=== PATIENT | female | born 1995 | race Caucasian/White ===

== ENCOUNTER 2020-01-19 20:22 | Inpatient (IN) | payer OTHER ==
[~2020-01-19] VITALS: Ht 149.9 cm; Wt 53.8 kg
[2020-01-19] MEDS ORDERED: IBU800 M1 PO (21:36)
[2020-01-19] MEDS ORDERED: SEPTRA DS 8001 TAB PO (21:36)
[2020-01-19 21:37] LABS: EOS % 0.2 % (0-4.0); GRAN # 3.2 (1.4-6.5); GRAN % 79.9 % (42.2-75.2); HEMATOCRIT 40.3 % (37.0-47.0); HEMOGLOBIN 13.2 g/dl (12.5-16.0); LYMPH # 0.5 (1.2-3.4); LYMPH % 12.9 % (20.0-51.0); MEAN CELL VOLUME 92 fl (80.0-100.0); MEAN CORPUSCULAR HEMOGLOBIN 30 pg (27.0-31.0); MEAN CORPUSCULAR HGB CONC 33 g/dl (33.0-37.0); MEAN PLATELET VOLUME 10.4 fl (7.4-10.4); MONO # 0.2 (0.1-0.6); MONO % 5.5 % (1.7-9.3); PLATELET COUNT 253 K/mm3 (130-400); RED BLOOD COUNT 4.38 M/mm3 (4.10-5.30); REDCELL DISTRIBUTION WIDTH-CV 13.3 % (11.5-14.5)
[2020-01-19] MEDS ORDERED: ZYRTEC 10MG10 MG PO (21:37)
[2020-01-19] MEDS ORDERED: DULCOLAX STOOL100 MG PO (21:37)
[2020-01-19] MEDS ORDERED: SINGULAIR 110 MG/TAB PO (21:37)
[2020-01-19] MEDS ORDERED: MIRALAX PA17 GM/Dose PO (21:38)
[2020-01-19 21:53] LABS: ALBUMIN 4.5 gm/dL (3.5-5.0); BILIRUBIN,TOTAL 0.6 mg/dL (0.0-1.0); C-REACTIVE PROTEIN 5.3 mg/dL (0.0-0.9); CALCIUM 9.5 mg/dL (8.4-10.2); CREATININE, serum 0.68 (0.52-1.25); POTASSIUM 3.9 mmol/L (3.4-5.0); TOTAL PROTEIN 7.9 gm/dL (6.4-8.2)
[2020-01-19 22:30] LABS: COLLECTION METHOD CLEAN CATCH
[2020-01-19 22:38] LABS: MUCOUS Present /lpf; PH 7 (5-8); URINE APPEARANCE Clear; URINE BACTERIA Rare /hpf; URINE BILIRUBIN Negative (NEGATIVE); URINE BLOOD Negative (NEGATIVE); URINE COLOR Yellow; URINE GLUCOSE Negative (NEGATIVE); URINE KETONE Negative (NEGATIVE); URINE LEUKOCYTE ESTERASE 1+ (NEGATIVE); URINE NITRATE Negative (NEGATIVE); URINE PROTEIN(semi-quant) Negative (NEGATIVE); URINE RBC 0-2 /hpf; URINE UROBILINOGEN >=4.0 mg/dL (NEGATIVE)
[2020-01-19 23:53] VITALS: BP 102/68; PULSE 89; TEMP 98.8
[2020-01-20] VITALS (7 sets, daily range): BP systolic 83–108; BP diastolic 44–63; PULSE 61–79; TEMP 98–98.8
--- NOTE | 2020-01-20 05:01 | NUR ---
Patient to Room 342 at 2345 via cart. Mother at bedside. States pain is under control, but states she is nauseous. Order for phenergan obtained and given. Patient states this makes her arms and legs restless after administration. IV antibiotic received and given. No adverse reactions noted at this time. Patient ambulated with SBA from staff to the bathroom and voided. IVF to right AC. 3 dressings to abdomen present. CDI. BP at 0500 noted to be 83/44 with pulse of 65. Patient was asleep prior to vitals being taken. Denies symptoms. Dr. Solorzano updated and ordered to recheck in 30 minutes to an hour and call her back if BP continues to be low. Remains afebrile since arrival to the unit. Denies pain. Will continue to monitor patient.
--- NOTE | 2020-01-20 06:16 | NUR ---
Recheck on BP was 88/50. Dr. Solorzano updated. She stated to continue to monitor patient and call if she becomes symptomatic. States Dr. Calles comes on at 0700 and she will update her on situation. Will report off to day shift nurse.
[2020-01-20 07:08] LABS: EOS # 0.1 (0.0-0.7); EOS % 2.9 % (0-4.0); LYMPH # 0.7 (1.2-3.4); LYMPH % 22.7 % (20.0-51.0); MEAN CELL VOLUME 94 fl (80.0-100.0); MEAN CORPUSCULAR HGB CONC 32 g/dl (33.0-37.0); MEAN PLATELET VOLUME 10.8 fl (7.4-10.4); MONO # 0.2 (0.1-0.6); MONO % 7.1 % (1.7-9.3); PLATELET COUNT 191 K/mm3 (130-400); REDCELL DISTRIBUTION WIDTH-CV 13.4 % (11.5-14.5)
[2020-01-20 07:27] LABS: ALBUMIN 3.1 gm/dL (3.5-5.0); BILIRUBIN,TOTAL 0.3 mg/dL (0.0-1.0); C-REACTIVE PROTEIN 4.6 mg/dL (0.0-0.9); CALCIUM 8.1 mg/dL (8.4-10.2); CREATININE, serum 0.57 (0.52-1.25); POTASSIUM 3.2 mmol/L (3.4-5.0); TOTAL PROTEIN 5.8 gm/dL (6.4-8.2)
[2020-01-20 07:41] LABS: HEMATOCRIT 32.1 % (37.0-47.0); HEMOGLOBIN 10.4 g/dl (12.5-16.0); MEAN CORPUSCULAR HEMOGLOBIN 31 pg (27.0-31.0)
--- NOTE | 2020-01-20 08:20 | NUR ---
Dr. Pabon left Dr. Gallo a voicemail and text message. Pt reports her Last BM was yesterday. Mom Yola at bedside. Dr. Singletary peeled corners of three mepilex dressings to abd to look underneath, no excessive drainage. See order for CT to examine abd wall.
--- NOTE | 2020-01-20 08:25 | NUR ---
Pt to CT with Gisela. INT to RFA unhooked from fluids. Mom apprised of order. Given alternative menu and edu about how to order alternatives.
--- NOTE | 2020-01-20 10:50 | NUR ---
Patient resides at home with her family members in [place], [place] and plans to return home upon recovery. Patient's family is supportive of patient's needs including her mother Yola Elise ([phone]) and her sister Kelin Elise ([phone]). Patient has a history of a brain bleed and is disabled and has a walker to use for mobility assistance as needed. Patient's primary care physician is Janae Calles and is being seen by Dr. Solorzano, and her pharmacy is [facility] ([place]). Patient does not have advance directives of healthcare completed at this time and protective services social worker will follow up as needed.
--- NOTE | 2020-01-20 11:50 | NUR ---
Per Dr. Singletary, updated pt/mom about results of "CT showed no abcesses".
--- NOTE | 2020-01-20 13:31 | NUR ---
Pt ate grilled cheese sandwich and half rajesh soup.
[2020-01-20] MEDS ORDERED: TRANSDERM-0.5 MG/21 TD (13:45)
--- NOTE | 2020-01-20 17:51 | NUR ---
Pt denies nausea or vomitting since PO abx, has chronic constipation, last BM yesterday. Enc yogurt, got orders for probiotic. Denies any allergy to penicillins.
--- NOTE | 2020-01-20 19:11 | NUR ---
Bedside report MARTY Serrano. Pt c/o rt abd incision itching and feeling as if it was draining, lifted dressing and found scant drainage on aquacel ag piece, removed, lap site with puncture incision, pink, re-applied mepilex dressing. Other two dressings intact without shadowing.
--- NOTE | 2020-01-20 20:00 | NUR ---
BEDSIDE SHIFT REPORT REC'D BY ESME Maynard RN. FRAIL APPEARING PT RESTING IN BED. REQUESTED IBUPROFEN FOR HEADACHE. SEE MAR. REMAINS IN CONTACT ISOLATION FOR STRENTROPHOMONAS. SEE SHIFT ASSESSMENT. MOTHER DECIDING WHETHER TO GO HOME OR NOT. ASSISTED PT TO BR. YENI HERNANDEZ. VOIDING W/O DIFFICULTY. SEE I&O.
--- NOTE | 2020-01-20 21:33 | NUR ---
Changed mepilex to Rt abd as pt c/o itching.
[2020-01-21] VITALS (7 sets, daily range): BP systolic 90–116; BP diastolic 49–74; PULSE 64–80; TEMP 97.9–98.9
--- NOTE | 2020-01-21 02:00 | NUR ---
PT REQUESTED IBUPROFEN FOR VIVAR- FRONTAL/OCCIPITAL. ASSISTED UP TO BR TO VOID.
--- NOTE | 2020-01-21 06:00 | NUR ---
SHIFT SUMMARY: IBUPROFEN GIVEN X2 THIS SHIFT FOR VIVAR. BP THIS AM LOW AT 90/49. AFEBRILE. PT HAD BEEN SLEEPING WELL PREVIOUS. BOWEL MEDS GIVEN AT BEGINNING OF SHIFT- NO RESULTS. PT PASSING FLATUS.
[2020-01-21 06:34] LABS: HEMOGLOBIN 10.1 g/dl (12.5-16.0); MEAN CELL VOLUME 97 fl (80.0-100.0); MEAN CORPUSCULAR HEMOGLOBIN 30 pg (27.0-31.0); MEAN CORPUSCULAR HGB CONC 31 g/dl (33.0-37.0); MEAN PLATELET VOLUME 10.5 fl (7.4-10.4); PLATELET COUNT 192 K/mm3 (130-400); RED BLOOD COUNT 3.34 M/mm3 (4.10-5.30); REDCELL DISTRIBUTION WIDTH-CV 13.9 % (11.5-14.5)
[2020-01-21 06:36] LABS: HEMATOCRIT 32.3 % (37.0-47.0)
[2020-01-21 06:50] LABS: BILIRUBIN,TOTAL 0.2 mg/dL (0.0-1.0); CALCIUM 8.1 mg/dL (8.4-10.2); CREATININE, serum 0.52 (0.52-1.25); MAGNESIUM 1.9 mg/dL (1.6-2.3); TOTAL PROTEIN 5.7 gm/dL (6.4-8.2)
[2020-01-21 07:19] LABS: BAND 5 % (0-10); EOSINOPHIL 8 % (0-4); LYMPHOCYTE 47 % (20.0-51.0); NEUTROPHILS 38 % (42.0-75.2); PLATELET ESTIMATE NORMAL (NORMAL)
--- NOTE | 2020-01-21 07:22 | NUR ---
SHIFT REPORT GIVEN TO EMRE Rivas RN. NO CHANGES IN STATUS AT THIS TIME.
--- NOTE | 2020-01-21 15:06 | NUR ---
Patient reports that she had one loose stool that was runny. She flushed before this nurse could observe it. Patient reporting nausea, reporting phenergan caused restlessness in her arms and legs. VSS at this time. Will continue to monitor.
--- NOTE | 2020-01-21 20:18 | NUR ---
Patient was given a sprite and some crackers of which helped her with her nausea following her lunch. She was able to eat her supper with minimal nausea. Her sister and mother have been by her side and ate supper with her. Her mother assisted her with her shower this evening. Patient reported that she was seen by Dr. Singletary this afternoon and will be looking at possible discharge tomorrow if labs remain stable. This nurse reported off to night nurse.
--- NOTE | 2020-01-21 21:00 | NUR ---
Patient rests in bed. Snack of yogurt given. Contact precautions maintained. MELT DOWN FURNACE OPERATOR assisted patient with shower/set up and IV wrapped then unwrapped. Dressing right abdomin mepilex loose and new mepilex applied. No drainage to previous dressing/edges well approximated and no redness. HS meds along with ibuprofen for pain reviewed and given. Patients sister in visiting.
--- NOTE | 2020-01-21 23:23 | NUR ---
Patient rests in bed awake reports ibuprofen helped pain/now 02/04.
--- NOTE | 2020-01-22 02:17 | NUR ---
Patient rests with eyes closed. Respirations with ease.
--- NOTE | 2020-01-22 03:00 | NUR ---
Patient states she's been sleeping but bump in airmattress bothering her buttucks. Up to the bathroom and back to bed with assist. Max assist legs into bed and assisted to left side/pillow placed between legs and to back.
[2020-01-22 04:03] VITALS: BP 92/59; PULSE 73; TEMP 97.8
--- NOTE | 2020-01-22 06:28 | NUR ---
Woke patient for am med and given with crackers. Reports intermittent headache 6/10 and motrin 600mg given.
--- NOTE | 2020-01-22 07:00 | NUR ---
Bedside report from MARTY Amaya. Pt sitting up in bed with IVF, sister sleeping on window seat. Possibly plan for discharge home today. Pt wanted to take her colace d/t chronic constipation at baseline, did report having loose stool this morning. Takes pills whole with thin liquids. A&O, pleasantly cooperative, weakness with ambulation.
[2020-01-22 07:21] VITALS: BP 105/66; PULSE 72; TEMP 98.9
[2020-01-22] MEDS ORDERED: MINOCYCLIN100 MG/CAP PO (07:35)
[2020-01-22 11:22] VITALS: BP 104/61; PULSE 80; TEMP 98.6
--- NOTE | 2020-01-22 14:05 | NUR ---
Printed Pt health summary, discharge summary and home med list and reviewed with pt, and mother and sister April. Pt aware to keep appts with wound care and DEVELOPMENT SYSTEM EFFICIENCY MANAGER will call to schedule her f/u appt. Given printed prescription for minocin. Belongings gathered by family, including cell phone and clothes, slippers and coat. Replaced mepilex dressing to rt abd lap site. Edges well approximated, small cluster of small blisters/bumps near incision. Pt transported via wheelchair by this nurse and assisted into truck for ride to appointment with family. Pt and mom denied any questions.
== END 2020-01-22 14:00 | disposition home or self-care (01) | DRG 863 ==
LOC: COL.ER 20:22 → SURG 23:22
PROVIDERS: Emergency Medicine; Obstetrics & Gynecology; ADMIT Obstetrics & Gynecology
DX: T81.42XA Infection following a procedure, deep incisional surgical site, initial encounter (principal); Z16.29 Resistance to other single specified antibiotic; E87.6 Hypokalemia; Z88.1 Allergy status to other antibiotic agents; Z91.012 Allergy to eggs; Z91.018 Allergy to other foods; Z88.8 Allergy status to other drugs, medicaments and biological substances; M45.9 Ankylosing spondylitis of unspecified sites in spine; F41.9 Anxiety disorder, unspecified; R53.82 Chronic fatigue, unspecified
CPT/HCPCS: OP; J0713; J1885; J2550; J7030; Q9967